=== PATIENT | male | born 1980 | race African-American/Black ===

== ENCOUNTER 2019-12-20 13:01 | Outpatient (RCR) | payer OTHER ==
[~2019-12-20 13:01] MED LIST: INDERAL40 MG PO; LORTAB 5/500 501 TAB PO; NO HOME MEDICATIONS; PRINZIDE 12.5 M1 TAB PO
[2019-12-24] MEDS ORDERED: PERCOCET 325 MG1 TA2 PO ×2 (06:18→09:31)
[2020-02-29] MEDS ORDERED: HYGROTON 2525 MG/TAB PO (23:02)
== END 2020-03-19 | disposition home or self-care (01) ==
LOC: WSOH
DX: K40.90 Unilateral inguinal hernia, without obstruction or gangrene, not specified as recurrent (principal); Y99.0 Civilian activity done for income or pay

== ENCOUNTER 2019-12-24 05:22 | Day surgery (SDC) | payer OTHER ==
[~2019-12-24] VITALS: Ht 175.3 cm; Wt 115.4 kg
[2019-12-24 06:12] VITALS: BP 189/101; PULSE 80; TEMP 98.2
[2019-12-24] MEDS ORDERED: PERCOCET 325 MG1 TA2 PO ×2 (06:18→09:31)
--- NOTE | 2019-12-24 06:19 | NUR ---
TO RM AT 0535- CALL LIGHT IN REACH WILL CALL MOTHER FOR RIDE HOME
--- NOTE | 2019-12-24 07:33 | NUR ---
DR AWAD INTO TALK WITH PATIENT AND DISCUSS DELAY DUE TO AN EMERGENCY IN ER.
--- NOTE | 2019-12-24 07:41 | NUR ---
PATIENT SLEEPING QUIETLY
[2019-12-24 10:05] VITALS: BP 124/72; PULSE 73; TEMP 98.1
--- NOTE | 2019-12-24 10:05 | NUR ---
TO RM 8 PER CART FROM PACU. DROWSY BUT ANSWERS QUESTIONS COHERENTLY. DRESSING CLEAN DRY INTACT. C/O PAIN 3-09/30 AT [facility]. DENIES N/V. RESPIRATIONS EVEN AND NONLABORED O2 SAT 95% ON ROOM AIR.
[2019-12-24 10:20] VITALS: BP 125/72; PULSE 69
--- NOTE | 2019-12-24 10:20 | NUR ---
MORE AWAKE AND RECEIVED WATER. DRANK 1ST CUP WATER AND ASK FOR ANOTHER. RECEIVED 2ND GLASS OF WATER.
[2019-12-24 10:35] VITALS: BP 119/73; PULSE 64
--- NOTE | 2019-12-24 10:35 | NUR ---
RECEIVED GRAPE JUICE AND BLUEBERRY MUFFIN. C/O PAIN INCREASED TO 4-5/10
--- NOTE | 2019-12-24 10:50 | NUR ---
RECEIVED PERCOCET 5MG PO X 1
[2019-12-24 11:10] VITALS: BP 128/79; PULSE 66
--- NOTE | 2019-12-24 11:15 | NUR ---
AMBULATED TO BATHROOM WITH STANDY BY ASSIST. VOIDED AND AMBULATED BACK TO BED. OFFERED TO REST OR HE COULD GO HOME IF HE FELT READY.
--- NOTE | 2019-12-24 11:25 | NUR ---
RECEIVED DISCHARGE INSTRUCTIONS AND VERBALIZED UNDERSTANDING. DISCONTINUED IV AND INT- CATHETER INTACT. PATIENT GETTING DRESSED AND MOTHER CALLED FOR RIDE HOME.
--- NOTE | 2019-12-24 11:40 | NUR ---
DISCHARGED PER WC BY NURSING STAFF TO PRIVATE CAR IN CARE OF MOTHER- JM.
== END 2019-12-24 12:21 | disposition home or self-care (01) ==
LOC: SDCO 05:22
DX: K40.90 Unilateral inguinal hernia, without obstruction or gangrene, not specified as recurrent (principal); Z79.899 Other long term (current) drug therapy; F41.9 Anxiety disorder, unspecified; F90.9 Attention-deficit hyperactivity disorder, unspecified type
CPT/HCPCS: C1781; J0690; J1100; J1885; J2405; J2704; J3010; J7120

== ENCOUNTER 2020-02-29 21:55 | Emergency (ER) | payer SELFPAY ==
[~2020-02-29] VITALS: Ht 182.9 cm; Wt 104.5 kg
[~2020-02-29 21:55] MED LIST changes: +PERCOCET 325 MG1 TA2 PO
[2020-02-29 22:07] VITALS: BP 173/91; TEMP 98.6
[2020-02-29] MEDS ORDERED: HYGROTON 2525 MG/TAB PO (23:02)
[2020-02-29 23:30] VITALS: PULSE 76
== END 2020-02-29 23:30 | disposition home or self-care (01) ==
LOC: COL.ER 21:55
DX: I10 Essential (primary) hypertension (principal)

== ENCOUNTER 2020-11-07 05:26 | Observation (INO) | payer BC ==
[~2020-11-07] VITALS: Ht 182.9 cm; Wt 113.6 kg
[~2020-11-07 05:26] MED LIST changes: +HYGROTON 2525 MG/TAB PO
[2020-11-07 06:00] VITALS: PULSE 101
[2020-11-07 06:46] LABS: BASO % 0.3 % (0.0-2.0); EOS % 0.3 % (0-4.0); GRAN # 4.8 (1.4-6.5); GRAN % 66.9 % (42.2-75.2); HEMATOCRIT 44.1 % (42.0-52.0); HEMOGLOBIN 14.9 g/dl (13.5-18.0); LYMPH # 1.7 (1.2-3.4); LYMPH % 23.1 % (20.0-51.0); MEAN CELL VOLUME 85 fl (80.0-100.0); MEAN CORPUSCULAR HEMOGLOBIN 29 pg (27.0-31.0); MEAN CORPUSCULAR HGB CONC 34 g/dl (33.0-37.0); MEAN PLATELET VOLUME 10.3 fl (7.4-10.4); MONO # 0.7 (0.1-0.6); MONO % 9.1 % (1.7-9.3); PLATELET COUNT 263 K/mm3 (130-400); RED BLOOD COUNT 5.18 M/mm3 (4.20-5.60); REDCELL DISTRIBUTION WIDTH-CV 12.4 % (11.5-14.5)
[2020-11-07 07:01] LABS: ALANINE AMINOTRANSFERASE 49 U/L (4-49); ALBUMIN 4.5 gm/dL (3.5-5.0); ALKALINE PHOSPHATASE 73 U/L (50-136); ANION GAP 11 mmol/L (7-16); AST,SGOT 82 U/L (15-37); BILIRUBIN,TOTAL 0.4 mg/dL (0.0-1.0); BLOOD UREA NITROGEN 15 mg/dL (9-20); CALCIUM 9.3 mg/dL (8.4-10.2); CARBON DIOXIDE 22 mmol/L (22-30); CHLORIDE 106 mmol/L (98-107); CREATININE, serum 0.98 (0.66-1.25); GLUCOSE 99 mg/dL (74-106); POTASSIUM 3.5 mmol/L (3.4-5.0); SODIUM 139 mmol/L (137-145); TOTAL PROTEIN 7.7 gm/dL (6.4-8.2)
[2020-11-07 07:04] LABS: ACETAMINOPHEN < 10 ug/mL (10-30); ALCOHOL(ethanol),MEDICAL < 10 mg/dL; SALICYLATE < 1.0 mg/dL
[2020-11-07 07:35] LABS: COLLECTION METHOD CATHETER
[2020-11-07 07:52] LABS: TRICYCLIC ANTIDEPRESS URINE NEGATIVE
[2020-11-07 07:58] LABS: MUCOUS Present /lpf; PH 6 (5-8); SQUAMOUS EPITHELIAL 0-2 /hpf; URINE APPEARANCE Clear; URINE BACTERIA Rare /hpf; URINE BILIRUBIN Negative (NEGATIVE); URINE BLOOD 2+ (NEGATIVE); URINE COLOR Yellow; URINE GLUCOSE Negative (NEGATIVE); URINE KETONE Negative (NEGATIVE); URINE LEUKOCYTE ESTERASE Negative (NEGATIVE); URINE NITRATE Negative (NEGATIVE); URINE PROTEIN(semi-quant) 2+ (NEGATIVE); URINE RBC >50 /hpf; URINE UROBILINOGEN Negative (NEGATIVE)
[2020-11-07 09:00] VITALS: BP 175/116; PULSE 61
[2020-11-07 19:53] LABS: TROPONIN-I 0.054 ng/mL (0.000-0.035)
[2020-11-08 07:04] LABS: TROPONIN-I 0.041 ng/mL (0.000-0.035)
[2020-11-08 08:07] LABS: BASO % 0.5 % (0.0-2.0); EOS # 0.3 (0.0-0.7); EOS % 5.3 % (0-4.0); GRAN # 3.1 (1.4-6.5); GRAN % 50.3 % (42.2-75.2); HEMATOCRIT 47.4 % (42.0-52.0); HEMOGLOBIN 15.4 g/dl (13.5-18.0); LYMPH # 2.1 (1.2-3.4); LYMPH % 33.9 % (20.0-51.0); MEAN CELL VOLUME 88 fl (80.0-100.0); MEAN CORPUSCULAR HEMOGLOBIN 28 pg (27.0-31.0); MEAN CORPUSCULAR HGB CONC 33 g/dl (33.0-37.0); MEAN PLATELET VOLUME 10.3 fl (7.4-10.4); MONO # 0.6 (0.1-0.6); MONO % 9.8 % (1.7-9.3); PLATELET COUNT 234 K/mm3 (130-400); RED BLOOD COUNT 5.42 M/mm3 (4.20-5.60); REDCELL DISTRIBUTION WIDTH-CV 12.4 % (11.5-14.5)
[2020-11-08 08:18] LABS: CALCIUM 8.8 mg/dL (8.4-10.2); CHOLESTEROL RISK RATIO 2.5; CREATININE, serum 0.78 (0.66-1.25); POTASSIUM 3.7 mmol/L (3.4-5.0)
[2020-11-08 16:26] VITALS: BP 147/90; PULSE 57; TEMP 98.5
--- NOTE | 2020-11-08 18:45 | NUR ---
Pt up to room 356, he is alert and oriented. Pleasant and cooperative with cares. Breathing is even and unlabored on RA. Pt denies any pain at this time. Pt requesting a shower, assisted in setting up for shower. Pt states he is surprised how quickly he is healing as these abrasions happened yesterday and are almost gone. Dr. Chen was up to see patient. Call light within reach.
[2020-11-08 20:02] VITALS: BP 137/71; PULSE 73; TEMP 98.7
--- NOTE | 2020-11-08 20:30 | NUR ---
Initial shift assessment done-states wants to sleep, denies pain- states has a few aches in his legs but that" he is fine', pleasant, alert/oriented, IV fluids of LR at 125cc/hr, was given a urinal-Informed we need to measure the amount of urine. Tele on- SR 55/min. Has abrasion to right knee- patient states "that earlier in the day the wound was down to the bone but it just healed today "?
[2020-11-08 23:55] VITALS: BP 120/62; PULSE 77; TEMP 98.3
[2020-11-09 04:35] VITALS: BP 126/57; PULSE 61; TEMP 98.2
--- NOTE | 2020-11-09 05:50 | NUR ---
Quiet night-- sleeping most of the night-- did wake of hungry- sandwich box given, tele on, VSS, IV fluids at 125cc/hr, did have 1750 out of urine this shift.
[2020-11-09 06:56] LABS: ALBUMIN 3.6 gm/dL (3.5-5.0); CALCIUM 8.5 mg/dL (8.4-10.2); CREATININE, serum 0.75 (0.66-1.25); PHOSPHOROUS 3.7 mg/dL (2.5-4.5); POTASSIUM 3.5 mmol/L (3.4-5.0)
--- NOTE | 2020-11-09 07:00 | NUR ---
REPORT RECEIVED. PT RESTING IN BED. WILL CONTINUE TO MONTIOR.
--- NOTE | 2020-11-09 07:50 | NUR ---
Pt complianing of leg aches. Call placed to but no answer. Will follow up.
[2020-11-09 07:52] VITALS: BP 141/75; PULSE 57; TEMP 98.5
--- NOTE | 2020-11-09 09:22 | NUR ---
Initial visit; Patient thanked Pinmaker for looking in on him and offering God's blessings and prayer.
--- NOTE | 2020-11-09 09:47 | NUR ---
The patient is medically cleared. program clerk faxed psych screen referral to [facility]. Medical Staff Assistant contacted the [facility] and a screener will contact the rn intensive care unit when they are ready to screen. It should be before noon this day. SW collaborated the above information with the patient's nurse. *Discharge disposition: Pending Ariel screen for recommendations
[2020-11-09 13:29] VITALS: BP 140/90; PULSE 113; TEMP 97.7
--- NOTE | 2020-11-09 14:05 | NUR ---
Antonella screened the patient and the plan is to discharge home with a safety plan. PRADEEP met with the patient and he is agreeable to the discharge plan. The patient will discharge home today, 11/09. The patient does not have a PCP but was set up with Dr. Prince. The patient's insurance showed as self-pay. The patient states he does have insurance (Blue Cross and [employer] Shield) from his employment at [employer] in [place]. Insurance information sent to . PRADEEP collaborated the above information with the patient's nurse. There are no additional needs at this time. *Discharge disposition: Home
--- NOTE | 2020-11-09 14:11 | NUR ---
PT SCREENED BY [facility]. PT CLEARED TO DC HOME WHEN MEDICALLY STABLE. NOTIFIED. ORDERS RECEIVED FOR DISCHARGE. PT SET UP WITH A NEW PCP OFFICE AND FOLLOW UP WITH CARDIOLOGY. DISCHARGE INSTRUCTIONS DISCUSSED WITH PT. ALL QUESTIONS ANSWERED. IV AND TELE DC'D. PT DRESSED AND BELONGINGS RETURNED TO PT. PT WHEELED TO HIS CAR FOR DISCHARGE.
== END 2020-11-09 14:00 | disposition home or self-care (01) ==
LOC: COL.ER 05:26 → MEDICAL 11-08 02:43
PROVIDERS: Emergency Medicine; Internal Medicine; Student in an Organized Health Care Education/Training Program; ADMIT Internal Medicine
DX: F23 Brief psychotic disorder (principal); I21.A1 Myocardial infarction type 2; I42.2 Other hypertrophic cardiomyopathy; M62.82 Rhabdomyolysis; J45.909 Unspecified asthma, uncomplicated; F19.10 Other psychoactive substance abuse, uncomplicated; F17.210 Nicotine dependence, cigarettes, uncomplicated; Z20.822 Contact with and (suspected) exposure to COVID-19
CPT/HCPCS: 99223-AI; 99239; G0378; J1200; J1630; J2060; J7030; J7120